=== PATIENT | male | born 2000 | race Hispanic/Latino ===

== ENCOUNTER 2022-12-07 23:09 | Emergency (ER) | payer OTHER ==
[~2022-12-07] VITALS: Ht 195.6 cm; Wt 145.6 kg
[2022-12-07 23:11] VITALS: BP 116/68; PULSE 87; RESP 18
[2022-12-08] MEDS ORDERED: KETOROLAC 60 MG VIAL (30MG/ML) IM ONE
[2022-12-08] MEDS ORDERED: DEXAMETHASONE SOD PHOSPHATE 4 MG/ML 1ML VIAL IM ONE
[2022-12-08] MEDS ORDERED: IBUP-1493 PO (02:10)
== END 2022-12-08 02:21 | disposition home or self-care (01) ==
LOC: EDH 23:09
DX: M54.2 Cervicalgia (principal)
CPT/HCPCS: 99285; 72050; 72125; 96372 ×2; J1100; J1885

== ENCOUNTER 2023-02-08 11:45 | Emergency (ER) | payer BC, OTHER ==
[~2023-02-08] VITALS: Ht 195.6 cm; Wt 145.1 kg
[~2023-02-08 11:45] MED LIST: IBUP-1493 PO
[2023-02-08 11:46] VITALS: BP 151/86; PULSE 107; RESP 20
== END 2023-02-08 13:14 | disposition left against medical advice (07) ==
LOC: EDH 11:45
DX: Z13.30 Encounter for screening examination for mental health and behavioral disorders, unspecified (principal); Z53.21 Procedure and treatment not carried out due to patient leaving prior to being seen by health care provider

== ENCOUNTER 2023-04-18 16:28 | Emergency (ER) | payer BC ==
[~2023-04-18] VITALS: Ht 195.6 cm; Wt 145.1 kg
[2023-04-18] MEDS ORDERED: IBUPROFEN 600 MG TABLET PO ONE (17:30)
[2023-04-18 18:27] VITALS: BP 129/81; PULSE 78; RESP 18; O2SAT 98
== END 2023-04-18 18:29 | disposition home or self-care (01) ==
LOC: EDH 16:28
DX: S00.83XA Contusion of other part of head, initial encounter (principal); S09.90XA Unspecified injury of head, initial encounter; J45.909 Unspecified asthma, uncomplicated; Z79.1 Long term (current) use of non-steroidal anti-inflammatories (NSAID); W18.39XA Other fall on same level, initial encounter; Y93.89 Activity, other specified; Y92.89 Other specified places as the place of occurrence of the external cause; Y99.8 Other external cause status
CPT/HCPCS: 70450

== ENCOUNTER 2023-06-04 11:56 | Emergency (ER) | payer BC ==
[~2023-06-04] VITALS: Ht 195.6 cm; Wt 145.1 kg
[2023-06-04 13:45] LABS: SARS-CoV-2, RNA, NAAT NEGATIVE SARS CoV-2 (NEGATIVE)
[2023-06-04 13:47] LABS: INFLUENZA TYPE A Negative For Type A (NEGATIVE); INFLUENZA TYPE B Negative For Type B (NEGATIVE)
[2023-06-04] MEDS ORDERED: IBUPROFEN 800 MG TAB PO ONE (14:30)
[2023-06-04 15:28] VITALS: BP 156/77; PULSE 84; RESP 20; O2SAT 0
[2023-06-04] MEDS ORDERED: AZIT250T PO (16:16)
== END 2023-06-04 16:25 | disposition home or self-care (01) ==
LOC: EDH 11:56
DX: J06.9 Acute upper respiratory infection, unspecified (principal); R05.9 Cough, unspecified; R51.9 Headache, unspecified; M79.10 Myalgia, unspecified site; Z20.822 Contact with and (suspected) exposure to COVID-19
CPT/HCPCS: 71045; 87635; 87804; 87880

== ENCOUNTER 2024-04-04 08:33 | Emergency (ER) | payer BC ==
[~2024-04-04] VITALS: Ht 195.6 cm; Wt 145.1 kg
[~2024-04-04 08:33] MED LIST changes: +AZIT250T PO
--- NOTE | 2024-04-04 09:19 | NUR ---
DECLINING BLOOD DRAW OR IV INSERTION
--- NOTE | 2024-04-04 09:46 | ERN ---
General Chief Complaint: Weakness Stated Complaint: WEAKNESS Time Seen by MD: 08:39 History of Present Illness Initial Comments 23-year-old male history of ADHD presents for bilateral knee pain. Patient reports he yesterday was walking, he lost his balance and he fell on both knees. Since then they have been hurting. No swelling. He is ambulatory. He went to an urgent care and was diagnosed with soft tissue injury. No x-rays were performed. No other studies were performed. Patient presents today because he reports that he feels pain in his bilateral thighs as well. He denies any systemic symptoms. He reports that he is very worried that he has Bell syndrome since he was father had a young age. He denies any urethritis or symptoms, denies any eye symptoms. Denies any recent infection. He is ambulatory, there is no obvious deformity or injuries to his knees. Normal reflexes. Neurovascularly intact. Normal skin signs. Medical history: ADHD No surgical history Allergies: Coded Allergies: No Known Allergies (Unverified Allergy, Unknown, 12/07/22) Home Meds Active Scripts Azithromycin (Zithromax) 250 Mg Tablet, 250 MG PO AD, #6 TAB 0 Refills Take 2 tablets on day 1 Take 1 tablet on days 2 through 5 Prov:ANNETTA CASPER 06/04/23 Ibuprofen (Motrin/Advil) 800 Mg Tab, 800 MG PO TID, #30 TAB Prov:KIP SMITH MD 12/08/22 Past Medical History Past Medical History: No Pertinent History Medical History Other: DJD Past Surgical History: None Family History Family History: Negative Social History Social History: Negative, Lives with family ROS Dictation CONSTITUTIONAL: No chills, no fever, no weakness, no diaphoresis, no malaise. HEAD/FACE: No signs of trauma. EENT: No eye pain, no blurred vision, no tearing, no double vision, no ear pain, no ear discharge, no nose pain, no nasal congestion, no throat pain, no throat swelling, no mouth pain. RESPIRATORY: No cough, no orthopnea, no SOB, no stridor, no wheezing. CARDIOVASCULAR: No chest pain, no edema, no palpitations, no syncope. GASTROINTESTINAL/ABDOMINAL: No abdominal pain, no constipation, no diarrhea, no nausea, no vomiting. GENITOURINARY: No abnormal discharge, no dysuria, no frequent urination, no hematuria. No complaints of pain in the genitals. MUSCULOSKELETAL: Bilateral knee pain. INTEGUMENTARY: No change in color, no change in hair/nails, no dryness, no lesion, no lumps, no rash. NEUROLOGICAL/PSYCH: No anxiety, not depressed, no emotional problem, no headache, no numbness, no pre-existing deficit, no history of seizures, no tremors, no weakness. HEMATOLOGIC/LYMPHATIC: Not anemic, no history of blood clots, no apparent bleeding, no bruising, glands not swollen. All Systems Negative, Except as Noted. Physical Exam Physical Exam Dictation VITAL SIGNS: Reviewed. GENERAL APPEARANCE: Alert, oriented x3, no acute distress, obese. HEAD AND FACE: Non-traumatic. EYES: PERRL, pink conjunctivas, eyelid no trauma, anterior chamber clear. EARS: Pinnas intact and no signs of trauma or erythema. Ear canals clear and no discharge. TMs no erythema. NOSE: No discharge, no bleeding. OROPHARYNX: Mouth normal, teeth no caries, tongue pink. Pharynx clear, no erythema. Tonsils no exudates, no abscesses noted. Mucous membrane moist. NECK: Supple, non-tender, no thyromegaly, no masses, no JVD, no bruits. BREAST: Deferred. CHEST: No tenderness, no crepitus, no paradoxical movement, no retractions. LUNGS: Clear, well-ventilated, symmetric, no rales, no wheezing, no rhonchi, no stridor, good breath sounds bilaterally. HEART: Regular rate, regular rhythm, no murmur, no gallops. VASCULAR: No peripheral edema. ABDOMEN: Soft, positive bowel sounds, nondistended, no guarding, nontender, no rebound, no masses no hepatomegaly, no splenomegaly, no Mccollum's sign, no hernias. RECTAL: Deferred. GENITAL: Deferred. NEUROLOGICAL: Normal speech, gross motor function intact, gross sensory function intact. MUSCULOSKELETAL: Neck nontender, full range of motion, back nontender, full range of motion. EXTREMITIES: Nontender, full range of motion. SKIN: Color pink, dry, no turgor, no rash, no lacerations, no abrasions, no contusions. LYMPHATICS: Deferred. MDM CC: Bilateral knee pain status post fall yesterday Historian: Patient Comorbidities: ADHD, obesity Limitations by social determinants of health: None Vital signs are stable Clinical exam is unremarkable Differential diagnosis: Soft tissue injury, joint pain, significant neurovascular disorder neurologic disease, etc After clinical examination, I have very low suspicion for any life threats. He has no signs of Bell syndrome which has been in his main concern. No signs of Guillain-Brook. He does not appear to have any sort of arthritis. There is no major injuries noted. Bilateral knee x-rays (independently interpreted by me): No acute abnormalities fractures or signs of degenerative joint disease. Patient was ambulatory, he is neurovascularly intact. I suspect soft tissue injury. Very low suspicion for any life threats at this time. No signs of systemic injury or symptoms. We will DC with ibuprofen recommend PCP follow up. ED Course Orders Procedure Category Date Status Time Knee 3 Vw Bilateral RAD 04/04/24 Taken 09:14 Vital Signs Date Time Temp Pulse Resp B/P (MAP) Pulse Ox O2 Delivery O2 Flow Rate FiO2 04/04/24 09:08 77 16 97 Room Air* 0 21 04/04/24 08:35 98.4 82 18 140/88 98 Room Air 0 DX & DISP Disposition: Discharge Departure Impression: Primary Impression: Bilateral knee pain Condition: Stable Additional Instructions: Your x-rays were normal. You do not have any symptoms of Bell's syndrome at this time. Monitor for any weakness, or further symptoms. You can take [id number] ibuprofen or Tylenol as needed for pain. Please follow up with your primary doctor if you have any concerns. Referrals: TRACY ESTEVES (PCP) CLARICE MUÑOZ DO Apr 04, 2024 09:46
--- NOTE | 2024-04-04 09:48 | HMCIMG ---
Exam Type: KNEE 3 VW BILATERAL Clinical Information: pain Comparison: None Findings: The bone examination is unremarkable. No fractures or dislocations are seen. No radiopaque foreign bodies are noted. Soft tissues are preserved. IMPRESSION: Normal examination.
[2024-04-04 11:11] VITALS: BP 137/85; PULSE 79; RESP 18; TEMP 98.6; O2SAT 98
--- NOTE | 2024-04-04 11:12 | NUR ---
DISCHARGED FOR PRIMARY NURSE, MANDO, AMBULATING WITH OUT ASSISTANCE. WALK THRU ER DC DOOR.
== END 2024-04-04 11:13 | disposition home or self-care (01) ==
LOC: EDH 08:33
DX: M25.561 Pain in right knee (principal); M25.562 Pain in left knee; E66.9 Obesity, unspecified; F90.9 Attention-deficit hyperactivity disorder, unspecified type; Z79.1 Long term (current) use of non-steroidal anti-inflammatories (NSAID); W18.39XA Other fall on same level, initial encounter; Y93.89 Activity, other specified; Y92.89 Other specified places as the place of occurrence of the external cause; Y99.8 Other external cause status
CPT/HCPCS: 99283